=== PATIENT | male | born 1950 | race Two or more races ===

== ENCOUNTER 2019-01-28 09:55 | Inpatient (IN) | payer MEDICARE, OTHER ==
[~2019-01-28] VITALS: Ht 167.6 cm; Wt 138.7 kg
--- NOTE | 2019-01-28 10:09 | NUR ---
Oxygen saturation maintained above 90% with oxygen via nasal cannula at 6LPM
[2019-01-28] MEDS ORDERED: SODIUM CHLORIDE FLUSH 10ML SYR IVF ONE (10:30)
--- NOTE | 2019-01-28 10:49 | NUR ---
[place] for increasing SOB. Pt normally on 5L NC but has felt increasing SOB. Lungs CTA. NSR on monitor. 94% 5L. No CP. Mild swelling to BLEs.
[2019-01-28 10:51] LABS: ALANINE AMINOTRANSFERASE 23 U/L (12-78); ALBUMIN 2.6 g/dL (3.4-5.0); ANION GAP 3 mmol/L (5-15); CALCIUM 8.5 mg/dL (8.5-10.1); CHLORIDE 103 mmol/L (98-107); CREATININE 1.29 mg/dL (0.7-1.3)
[2019-01-28 10:55] LABS: ALKALINE PHOSPHATASE 82 U/L (45-117); BILIRUBIN,TOTAL 0.7 mg/dL (0.2-1.0); TOTAL PROTEIN 8.3 g/dL (6.4-8.2); TROPONIN I 0.025 ng/mL (0.000-0.045)
[2019-01-28 11:08] LABS: BASOPHILS # (AUTO) 0.01 x10^3/uL (0-0.1); BASOPHILS % (AUTO) 0 % (0-1); EOSINOPHILS # (AUTO) 0.09 x10^3/uL (0-0.4); EOSINOPHILS % (AUTO) 1 % (1-7); LYMPHOCYTES # (AUTO) 1.23 x10^3/uL (1-3.4); LYMPHOCYTES % (AUTO) 13 % (22-44); MD SCAN; MEAN CORPUSCULAR HEMOGLOBIN 28.1 pg (27.5-34.5); MEAN CORPUSCULAR HGB CONC 30.8 g/dL (33.2-36.2); MEAN CORPUSCULAR VOLUME 91.3 fL (81-97); MEAN PLATELET VOLUME 7.2 fL (7.4-10.4); MONOCYTES # (AUTO) 0.57 x10^3/uL (0.2-0.8); MONOCYTES % (AUTO) 6 % (2-9); NEUTROPHILS # (AUTO) 7.88 x10^3/uL (1.8-6.8); NEUTROPHILS % (AUTO) 81 % (42-75); PLATELET COUNT 332 x10^3/uL (130-400); RED BLOOD COUNT 5.92 x10^6/uL (4.38-5.82)
[2019-01-28] MEDS ORDERED: CEFTRIAXONE PMX 1GM/50ML 50 ML IVPB ONE (11:30)
[2019-01-28] MEDS ORDERED: FUROSEMIDE 20 MG/2 ML IV ONE (11:30)
[2019-01-28] MEDS ORDERED: FUROSEMIDE 40 MG/4 ML ONE (12:03)
[2019-01-28] MEDS ORDERED: CEFTRIAXONE PMX 1GM/50ML 50 ML ONE ×2 (12:03→19:49)
--- NOTE | 2019-01-28 12:56 | NUR ---
PT WITH PENITENTIARY PLUS DENIED BY PAT AT [facility]
[2019-01-28] MEDS ORDERED: LIDODERM 5% PATCH TD PRN (13:00)
[2019-01-28] MEDS ORDERED: hydrALAzine 20 MG/ML, 1ML IVPush PRN (13:00)
[2019-01-28] MEDS ORDERED: GUAIFENESIN/DM 200-20MG, 10ML UDC PO PRN (13:00)
[2019-01-28] MEDS ORDERED: DOCUSATE 100 MG CAPSULE PO PRN (13:00)
[2019-01-28] MEDS ORDERED: NITROGLYCERIN 0.4 MG/SPRAY SL PRN (13:00)
[2019-01-28] MEDS ORDERED: ONDANSETRON ODT 4 MG PO PRN (13:00)
[2019-01-28] MEDS ORDERED: BISACODYL 10 MG SUPP PR PRN (13:00)
[2019-01-28] MEDS ORDERED: NITROGLYCERIN 0.4 MG BOTTLE (25 TABS) SL PRN ×2 (13:00)
[2019-01-28] MEDS ORDERED: CHOL400T55 PO (13:05)
[2019-01-28] MEDS ORDERED: ALLO300T PO (13:05)
[2019-01-28] MEDS ORDERED: NAPR-856 PO (13:05)
[2019-01-28] MEDS ORDERED: LISI-170 PO (13:05)
[2019-01-28] MEDS ORDERED: HEPARIN 5,000 UNITS/ML, 1ML ONE ×2 (13:45→21:05)
[2019-01-28] MEDS: HEPARIN 5,000 UNITS/ML, 1ML SQ SCH ×2 (13:50→21:11)
[2019-01-28 13:52] LABS: HEMOGLOBIN A1C 6.3 % (4.2-6.3)
[2019-01-28 13:53] LABS: TROPONIN I 0.031 ng/mL (0.000-0.045)
[2019-01-28 13:54] LABS: FREE T4 (FREE THYROXINE) 1.27 ng/dL (0.76-1.46)
[2019-01-28 14:00] LABS: THYROID STIMULATING HORMONE 0.469 mIU/L (0.358-3.740)
--- NOTE | 2019-01-28 15:44 | NUR ---
TASK RN: PT MOVED ONTO HOSPITAL BED FOR COMFORT.
[2019-01-28] MEDS: FUROSEMIDE 20 MG/2 ML IV SCH (16:53)
[2019-01-28] MEDS ORDERED: ALBUTEROL/IPRATROPIUM 2.5MG/0.5MG, 3 ML HHN PRN (19:30)
[2019-01-28] MEDS: CEFTRIAXONE PMX 1GM/50ML 50 ML IV SCH (19:54)
[2019-01-28] MEDS: DOXYCYCLINE 100MG CAP PO SCH (21:00)
[2019-01-28] MEDS ORDERED: DOXYCYCLINE 100MG TABLET ONE (21:05)
[2019-01-28 22:10] VITALS: BP 109/64
[2019-01-28 22:53] VITALS: BP 109/65
[2019-01-29 02:10] VITALS: BP 116/71
[2019-01-29] MEDS: HEPARIN 5,000 UNITS/ML, 1ML SQ SCH ×3 (04:56→20:52)
[2019-01-29 06:21] LABS: CHLORIDE 100 mmol/L (98-107)
[2019-01-29 06:26] LABS: ANION GAP 1 mmol/L (5-15); CALCIUM 8.8 mg/dL (8.5-10.1); CHOL/HDL RATIO 3.3; CHOLESTEROL, TOTAL 128 mg/dL (140-239); CREATININE 1.31 mg/dL (0.7-1.3); HDL CHOL % 30 % (26-37); HDL CHOLESTEROL (DIRECT) 39 mg/dL (40-60); LDL CHOLESTEROL,CALCULATED 78 mg/dL (54-169); TRIGLYCERIDES 57 mg/dL (50-200); VLDL CHOLESTEROL 11 mg/dL (0-25)
[2019-01-29 06:30] LABS: MEAN CORPUSCULAR HEMOGLOBIN 28.8 pg (27.5-34.5); MEAN CORPUSCULAR HGB CONC 31.4 g/dL (33.2-36.2); MEAN CORPUSCULAR VOLUME 91.7 fL (81-97); MEAN PLATELET VOLUME 7.4 fL (7.4-10.4); PLATELET COUNT 297 x10^3/uL (130-400); RED BLOOD COUNT 5.66 x10^6/uL (4.38-5.82); RED CELL DISTRIBUTION WIDTH 14.6 % (9.4-14.8)
[2019-01-29 07:22] VITALS: BP 123/69
[2019-01-29 08:47] LABS: BASOPHILS # (AUTO) 0.03 x10^3/uL (0-0.1); BASOPHILS % (AUTO) 0 % (0-1); EOSINOPHILS # (AUTO) 0.16 x10^3/uL (0-0.4); EOSINOPHILS % (AUTO) 2 % (1-7); LYMPHOCYTES # (AUTO) 1.12 x10^3/uL (1-3.4); LYMPHOCYTES % (AUTO) 13 % (22-44); MD SCAN; MONOCYTES % (AUTO) 8 % (2-9); NEUTROPHILS # (AUTO) 6.54 x10^3/uL (1.8-6.8); NEUTROPHILS % (AUTO) 77 % (42-75)
[2019-01-29] MEDS: FUROSEMIDE 20 MG/2 ML IV SCH (09:12)
[2019-01-29] MEDS: DOXYCYCLINE 100MG CAP PO SCH ×2 (09:12→20:52)
[2019-01-29 13:00] VITALS: BP 114/74
[2019-01-29 18:59] VITALS: BP 122/81
[2019-01-29] MEDS: CEFTRIAXONE PMX 1GM/50ML 50 ML IV SCH (19:30)
[2019-01-30 03:59] VITALS: BP 100/64
[2019-01-30] MEDS: HEPARIN 5,000 UNITS/ML, 1ML SQ SCH ×3 (05:25→20:20)
[2019-01-30 06:10] LABS: CHLORIDE 99 mmol/L (98-107)
[2019-01-30 06:18] LABS: ANION GAP 3 mmol/L (5-15); CALCIUM 8.7 mg/dL (8.5-10.1); CREATININE 1.35 mg/dL (0.7-1.3)
[2019-01-30 07:26] VITALS: BP 149/65
[2019-01-30] MEDS: ALLOPURINOL 300 MG TABLET PO SCH (08:19)
[2019-01-30] MEDS: DOXYCYCLINE 100MG CAP PO SCH ×2 (08:19→20:19)
[2019-01-30] MEDS: CHOLECALCIFEROL 400 UNITS TABLET PO SCH (08:19)
[2019-01-30] MEDS: ACETAMINOPHEN 325 MG TABLET PO PRN (12:41)
[2019-01-30 13:12] VITALS: BP 145/77
[2019-01-30 19:42] VITALS: BP 102/61
[2019-01-30] MEDS: CEFTRIAXONE PMX 1GM/50ML 50 ML IV SCH (20:19)
[2019-01-31] MEDS: ACETAMINOPHEN 325 MG TABLET PO PRN ×3 (00:10→19:39)
[2019-01-31 00:56] VITALS: BP 121/73
[2019-01-31] MEDS: HEPARIN 5,000 UNITS/ML, 1ML SQ SCH ×2 (05:27→21:27)
[2019-01-31 06:08] LABS: CALCIUM 8.8 mg/dL (8.5-10.1); CHLORIDE 100 mmol/L (98-107); CREATININE 1.33 mg/dL (0.7-1.3)
[2019-01-31 06:31] LABS: ANION GAP 4 mmol/L (5-15)
[2019-01-31 07:02] VITALS: BP 124/76
[2019-01-31] MEDS: CHOLECALCIFEROL 400 UNITS TABLET PO SCH (08:01)
[2019-01-31] MEDS: DOXYCYCLINE 100MG CAP PO SCH (08:01)
[2019-01-31] MEDS: ALLOPURINOL 300 MG TABLET PO SCH (08:05)
[2019-01-31 12:15] VITALS: BP 135/80
[2019-01-31] MEDS ORDERED: FENTANYL PF 100 MCG/2ML ONE (13:54)
[2019-01-31] MEDS ORDERED: PROPOFOL 100 ML IV ONE (13:55)
[2019-01-31] MEDS ORDERED: ETOMIDATE 20 MG/10 ML ONE (14:00)
[2019-01-31] MEDS ORDERED: ROCURONIUM 10MG/ML,5ML ONE (14:00)
[2019-01-31] MEDS ORDERED: GLUCAGON 1 MG IM PRN (14:30)
[2019-01-31] MEDS ORDERED: LIDOCAINE-MPF 1%, 2ML ENDO PRN (14:30)
[2019-01-31] MEDS ORDERED: SENNA/DOCUSATE TABLET NG PRN (14:30)
[2019-01-31] MEDS: ALBUTEROL/IPRATROPIUM 2.5MG/0.5MG, 3 ML INLINE SCH ×3 (14:30→22:34)
[2019-01-31] MEDS ORDERED: BISACODYL 10 MG SUPP PR PRN (14:30)
[2019-01-31] MEDS ORDERED: PHARMACY MAY ADJ FOR RENAL FX MC SCH (14:30)
[2019-01-31] MEDS ORDERED: DEXTROSE 4 GM TAB.CHEW PO PRN (14:30)
[2019-01-31] MEDS ORDERED: SODIUM CHLORIDE 0.9%, 500ML IV ONE (14:30)
[2019-01-31] MEDS ORDERED: SENNOSIDES 8.8 MG/5 ML ORAL SOL NG PRN (14:30)
[2019-01-31] MEDS ORDERED: DEXTROSE 50%, 50ML SYRINGE IVPush PRN (14:30)
[2019-01-31] MEDS ORDERED: AMPICILLIN/SULBACTAM 3 GM in SODIUM CHLORIDE 0.9% 100 ML IV SCH (15:00)
[2019-01-31 15:09] LABS: TROPONIN I < 0.015 ng/mL (0.000-0.045)
[2019-01-31] MEDS: SODIUM CHLORIDE 0.9% 1,000 ML IV SCH (15:29)
[2019-01-31] MEDS: AMPICILLIN/SULBACTAM 3 GM in SODIUM CHLORIDE 0.9% 50 ML IV SCH ×2 (15:29→23:57)
[2019-01-31] MEDS: FAMOTIDINE 20 MG/2 ML IV SCH (15:32)
[2019-01-31] MEDS: INSULIN LISPRO 100 UNITS/ML, PEN SQ-INSULIN SCH ×2 (16:00→21:00)
[2019-01-31] MEDS: PROPOFOL 100 ML IV PRN ×3 (16:15→21:22)
[2019-01-31] MEDS: FENTANYL PF 100 MCG/2ML IVPush PRN (19:39)
[2019-01-31 20:44] LABS: TROPONIN I < 0.015 ng/mL (0.000-0.045)
[2019-01-31] MEDS: SODIUM CHLORIDE FLUSH 10ML SYR IVF SCH (21:00)
[2019-02-01] MEDS: ALBUTEROL/IPRATROPIUM 2.5MG/0.5MG, 3 ML INLINE SCH ×6 (03:01→22:46)
[2019-02-01] MEDS: FAMOTIDINE 20 MG/2 ML IV SCH ×2 (03:21→13:45)
[2019-02-01] MEDS: PROPOFOL 100 ML IV PRN ×7 (03:21→21:48)
[2019-02-01] MEDS: SODIUM CHLORIDE 0.9% 1,000 ML IV SCH (03:50)
[2019-02-01 04:43] LABS: MICROSCOPIC AUTO
[2019-02-01 04:45] LABS: CULTURE INDICATED? NO
[2019-02-01 05:07] LABS: ALANINE AMINOTRANSFERASE 14 U/L (12-78); ALBUMIN 2.2 g/dL (3.4-5.0); ANION GAP 4 mmol/L (5-15); CALCIUM 8.4 mg/dL (8.5-10.1); CHLORIDE 101 mmol/L (98-107); CREATININE 1.28 mg/dL (0.7-1.3)
[2019-02-01 05:09] LABS: ALKALINE PHOSPHATASE 71 U/L (45-117); BILIRUBIN,TOTAL 1.2 mg/dL (0.2-1.0); TOTAL PROTEIN 7.8 g/dL (6.4-8.2)
[2019-02-01 05:10] LABS: MEAN CORPUSCULAR HEMOGLOBIN 28.7 pg (27.5-34.5); MEAN CORPUSCULAR VOLUME 89.7 fL (81-97); MEAN PLATELET VOLUME 8.2 fL (7.4-10.4); PLATELET COUNT 260 x10^3/uL (130-400); RED BLOOD COUNT 5.53 x10^6/uL (4.38-5.82); RED CELL DISTRIBUTION WIDTH 14.4 % (9.4-14.8)
[2019-02-01] MEDS: HEPARIN 5,000 UNITS/ML, 1ML SQ SCH ×3 (05:15→21:25)
[2019-02-01 06:35] LABS: MD YES
[2019-02-01 06:37] LABS: <RBC MORPHOLOGY> NORMAL; BAND#(MANUAL) 0.29 x10^3/uL; BANDS%(MANUAL) 2 % (0-7); LYMPH#(MANUAL) 0.88 x10^3/uL (1-3.4); LYMPHS% (MANUAL) 6 % (22-44); MONOS#(MANUAL) 1.46 x10^3/uL (0.3-2.7); MONOS% (MANUAL) 10 % (2-9); SEG#(MANUAL) 11.97 x10^3/uL (1.8-6.8); SEGS% (MANUAL) 82 % (42-75)
[2019-02-01 06:38] LABS: <PLATELET ESTIMATE> ADEQUATE; <PLT MORPHOLOGY> NORMAL PLT MORPH
[2019-02-01] MEDS: INSULIN LISPRO 100 UNITS/ML, PEN SQ-INSULIN SCH ×4 (07:00→21:00)
[2019-02-01] MEDS: AMPICILLIN/SULBACTAM 3 GM in SODIUM CHLORIDE 0.9% 50 ML IV SCH ×2 (07:12→16:09)
[2019-02-01] MEDS: CHOLECALCIFEROL 400 UNITS TABLET PO SCH (09:47)
[2019-02-01] MEDS: SODIUM CHLORIDE FLUSH 10ML SYR IVF SCH ×2 (09:47→21:28)
[2019-02-01] MEDS: ALLOPURINOL 300 MG TABLET PO SCH (09:47)
--- NOTE | 2019-02-01 11:29 | NUR ---
TF Recommendations: Vital High Protein ON Propofol: 65 ml/hr OFF Propofol: 70 ml/hr
[2019-02-01] MEDS: FENTANYL PF 100 MCG/2ML IVPush PRN (17:12)
[2019-02-02] MEDS: AMPICILLIN/SULBACTAM 3 GM in SODIUM CHLORIDE 0.9% 50 ML IV SCH ×2 (00:13→08:00)
[2019-02-02] MEDS: PROPOFOL 100 ML IV PRN ×4 (01:05→18:47)
[2019-02-02] MEDS: ALBUTEROL/IPRATROPIUM 2.5MG/0.5MG, 3 ML INLINE SCH ×6 (02:30→22:35)
[2019-02-02] MEDS: FAMOTIDINE 20 MG/2 ML IV SCH ×2 (04:10→13:31)
[2019-02-02] MEDS: HEPARIN 5,000 UNITS/ML, 1ML SQ SCH ×3 (04:11→21:33)
[2019-02-02] MEDS: FENTANYL PF 100 MCG/2ML IVPush PRN ×2 (04:21→10:53)
[2019-02-02 05:05] LABS: MEAN CORPUSCULAR HEMOGLOBIN 29.1 pg (27.5-34.5); MEAN CORPUSCULAR HGB CONC 32.2 g/dL (33.2-36.2); MEAN CORPUSCULAR VOLUME 90.2 fL (81-97); MEAN PLATELET VOLUME 8.5 fL (7.4-10.4); PLATELET COUNT 248 x10^3/uL (130-400); RED BLOOD COUNT 5.37 x10^6/uL (4.38-5.82); RED CELL DISTRIBUTION WIDTH 14.5 % (9.4-14.8)
[2019-02-02 05:51] LABS: ANION GAP 7 mmol/L (5-15); CALCIUM 8.5 mg/dL (8.5-10.1); CHLORIDE 101 mmol/L (98-107)
[2019-02-02 07:30] LABS: BASOPHILS # (AUTO) 0.08 x10^3/uL (0-0.1); BASOPHILS % (AUTO) 1 % (0-1); EOSINOPHILS % (AUTO) 1 % (1-7); LYMPHOCYTES # (AUTO) 0.76 x10^3/uL (1-3.4); LYMPHOCYTES % (AUTO) 6 % (22-44); MD SCAN; MONOCYTES # (AUTO) 1.79 x10^3/uL (0.2-0.8); MONOCYTES % (AUTO) 13 % (2-9); NEUTROPHILS # (AUTO) 11.04 x10^3/uL (1.8-6.8); NEUTROPHILS % (AUTO) 80 % (42-75)
[2019-02-02] MEDS: INSULIN LISPRO 100 UNITS/ML, PEN SQ-INSULIN SCH ×4 (08:00→21:37)
[2019-02-02] MEDS: SODIUM CHLORIDE FLUSH 10ML SYR IVF SCH ×2 (09:19→21:00)
[2019-02-02] MEDS: CHOLECALCIFEROL 400 UNITS TABLET PO SCH (09:20)
[2019-02-02] MEDS: ALLOPURINOL 300 MG TABLET PO SCH (09:20)
[2019-02-02] MEDS ORDERED: MIDAZOLAM 1 MG/ML, 5ML ONE (11:25)
[2019-02-02] MEDS ORDERED: VECURONIUM 10 MG ONE (11:25)
[2019-02-02] MEDS ORDERED: FUROSEMIDE 40 MG/4 ML IV ONE (14:20)
[2019-02-02] MEDS: CEFTRIAXONE PMX 1GM/50ML 50 ML IV SCH (14:51)
[2019-02-03] MEDS: ALBUTEROL/IPRATROPIUM 2.5MG/0.5MG, 3 ML INLINE SCH ×6 (02:20→22:30)
[2019-02-03 04:27] LABS: MEAN CORPUSCULAR HEMOGLOBIN 28.4 pg (27.5-34.5); MEAN CORPUSCULAR HGB CONC 31.5 g/dL (33.2-36.2); MEAN CORPUSCULAR VOLUME 90.3 fL (81-97); MEAN PLATELET VOLUME 8.1 fL (7.4-10.4); PLATELET COUNT 230 x10^3/uL (130-400); RED BLOOD COUNT 5.17 x10^6/uL (4.38-5.82); RED CELL DISTRIBUTION WIDTH 14.5 % (9.4-14.8)
[2019-02-03] MEDS: HEPARIN 5,000 UNITS/ML, 1ML SQ SCH ×3 (04:31→21:36)
[2019-02-03] MEDS: FAMOTIDINE 20 MG/2 ML IV SCH (04:31)
[2019-02-03 04:39] LABS: ANION GAP 3 mmol/L (5-15); CALCIUM 8.1 mg/dL (8.5-10.1); CHLORIDE 101 mmol/L (98-107); CREATININE 1.26 mg/dL (0.7-1.3); TRIGLYCERIDES 83 mg/dL (50-200)
[2019-02-03 04:43] LABS: MD YES
[2019-02-03 04:45] LABS: <PLATELET ESTIMATE> ADEQUATE; <PLT MORPHOLOGY> NORMAL PLT MORPH; <RBC MORPHOLOGY> NORMAL; BAND#(MANUAL) 0.38 x10^3/uL; BANDS%(MANUAL) 3 % (0-7); LYMPH#(MANUAL) 1.01 x10^3/uL (1-3.4); LYMPHS% (MANUAL) 8 % (22-44); MONOS#(MANUAL) 1.76 x10^3/uL (0.3-2.7); MONOS% (MANUAL) 14 % (2-9); SEG#(MANUAL) 9.45 x10^3/uL (1.8-6.8); SEGS% (MANUAL) 75 % (42-75)
[2019-02-03] MEDS: CEFTRIAXONE PMX 1GM/50ML 50 ML IV SCH (05:00)
[2019-02-03] MEDS: INSULIN LISPRO 100 UNITS/ML, PEN SQ-INSULIN SCH ×3 (07:00→21:37)
[2019-02-03] MEDS: SODIUM CHLORIDE FLUSH 10ML SYR IVF SCH ×2 (08:19→21:36)
[2019-02-03] MEDS: CHOLECALCIFEROL 400 UNITS TABLET PO SCH (08:19)
[2019-02-03] MEDS: ALLOPURINOL 300 MG TABLET PO SCH (08:20)
[2019-02-03] MEDS: PROPOFOL 100 ML IV PRN ×2 (10:01→19:49)
[2019-02-03] MEDS ORDERED: FAMOTIDINE 20 MG/2 ML IV SCH (21:00)
[2019-02-03] MEDS: FENTANYL PF 100 MCG/2ML IVPush PRN (21:38)
[2019-02-04] MEDS: FENTANYL PF 100 MCG/2ML IVPush PRN ×4 (01:39→20:44)
[2019-02-04] MEDS: ALBUTEROL/IPRATROPIUM 2.5MG/0.5MG, 3 ML INLINE SCH ×6 (03:00→22:06)
[2019-02-04 04:18] LABS: MEAN CORPUSCULAR HEMOGLOBIN 28.6 pg (27.5-34.5); MEAN CORPUSCULAR HGB CONC 31.6 g/dL (33.2-36.2); MEAN CORPUSCULAR VOLUME 90.4 fL (81-97); MEAN PLATELET VOLUME 8.1 fL (7.4-10.4); PLATELET COUNT 233 x10^3/uL (130-400); RED BLOOD COUNT 5.18 x10^6/uL (4.38-5.82); RED CELL DISTRIBUTION WIDTH 14.6 % (9.4-14.8)
[2019-02-04 04:29] LABS: ANION GAP 5 mmol/L (5-15); CALCIUM 8.3 mg/dL (8.5-10.1); CHLORIDE 101 mmol/L (98-107); CREATININE 1.14 mg/dL (0.7-1.3)
[2019-02-04 04:52] LABS: BASOPHILS # (AUTO) 0.04 x10^3/uL (0-0.1); BASOPHILS % (AUTO) 0 % (0-1); EOSINOPHILS # (AUTO) 0.11 x10^3/uL (0-0.4); EOSINOPHILS % (AUTO) 1 % (1-7); LYMPHOCYTES # (AUTO) 1.07 x10^3/uL (1-3.4); LYMPHOCYTES % (AUTO) 8 % (22-44); MD SCAN; MONOCYTES # (AUTO) 2.26 x10^3/uL (0.2-0.8); MONOCYTES % (AUTO) 17 % (2-9); NEUTROPHILS # (AUTO) 10.03 x10^3/uL (1.8-6.8); NEUTROPHILS % (AUTO) 74 % (42-75)
[2019-02-04] MEDS: INSULIN LISPRO 100 UNITS/ML, PEN SQ-INSULIN SCH ×4 (04:53→22:25)
[2019-02-04] MEDS: CEFTRIAXONE PMX 1GM/50ML 50 ML IV SCH (04:55)
[2019-02-04] MEDS: PROPOFOL 100 ML IV PRN ×2 (05:49→17:16)
[2019-02-04] MEDS: HEPARIN 5,000 UNITS/ML, 1ML SQ SCH ×3 (05:49→22:20)
[2019-02-04] MEDS: ALLOPURINOL 300 MG TABLET PO SCH (08:49)
[2019-02-04] MEDS: CHOLECALCIFEROL 400 UNITS TABLET PO SCH (08:49)
[2019-02-04] MEDS: SODIUM CHLORIDE FLUSH 10ML SYR IVF SCH ×2 (08:55→20:45)
[2019-02-04] MEDS: FAMOTIDINE 20 MG/2 ML IV SCH (20:45)
[2019-02-04] MEDS: ACETAMINOPHEN 325 MG TABLET PO PRN (23:50)
[2019-02-05] MEDS: ALBUTEROL/IPRATROPIUM 2.5MG/0.5MG, 3 ML INLINE SCH ×6 (02:50→22:29)
[2019-02-05] MEDS: PROPOFOL 100 ML IV PRN (02:59)
[2019-02-05 04:43] LABS: MEAN CORPUSCULAR HEMOGLOBIN 28.8 pg (27.5-34.5); MEAN CORPUSCULAR HGB CONC 31.7 g/dL (33.2-36.2); MEAN CORPUSCULAR VOLUME 90.7 fL (81-97); MEAN PLATELET VOLUME 8.4 fL (7.4-10.4); PLATELET COUNT 267 x10^3/uL (130-400); RED BLOOD COUNT 4.86 x10^6/uL (4.38-5.82); RED CELL DISTRIBUTION WIDTH 14.6 % (9.4-14.8)
[2019-02-05 04:55] LABS: ANION GAP 3 mmol/L (5-15); CALCIUM 8.7 mg/dL (8.5-10.1); CHLORIDE 102 mmol/L (98-107); CREATININE 1.16 mg/dL (0.7-1.3)
[2019-02-05] MEDS: CEFTRIAXONE PMX 1GM/50ML 50 ML IV SCH (05:09)
[2019-02-05] MEDS: INSULIN LISPRO 100 UNITS/ML, PEN SQ-INSULIN SCH ×4 (05:09→21:44)
[2019-02-05] MEDS: HEPARIN 5,000 UNITS/ML, 1ML SQ SCH ×3 (05:36→21:44)
[2019-02-05 05:57] LABS: BASOPHILS # (AUTO) 0.03 x10^3/uL (0-0.1); BASOPHILS % (AUTO) 0 % (0-1); EOSINOPHILS # (AUTO) 0.25 x10^3/uL (0-0.4); EOSINOPHILS % (AUTO) 2 % (1-7); LYMPHOCYTES # (AUTO) 0.74 x10^3/uL (1-3.4); LYMPHOCYTES % (AUTO) 7 % (22-44); MD SCAN; MONOCYTES # (AUTO) 2.06 x10^3/uL (0.2-0.8); MONOCYTES % (AUTO) 19 % (2-9); NEUTROPHILS # (AUTO) 8.03 x10^3/uL (1.8-6.8); NEUTROPHILS % (AUTO) 72 % (42-75)
[2019-02-05] MEDS ORDERED: MIDAZOLAM 1 MG/ML, 5ML ONE (08:46)
[2019-02-05] MEDS: SODIUM CHLORIDE FLUSH 10ML SYR IVF SCH ×2 (08:57→21:43)
[2019-02-05] MEDS: FAMOTIDINE 20 MG/2 ML IV SCH ×2 (08:57→21:00)
[2019-02-05] MEDS: CHOLECALCIFEROL 400 UNITS TABLET PO SCH (08:57)
[2019-02-05] MEDS: ALLOPURINOL 300 MG TABLET PO SCH (08:57)
[2019-02-05] MEDS: FENTANYL PF 100 MCG/2ML IVPush PRN (09:19)
[2019-02-05] MEDS ORDERED: FUROSEMIDE 20 MG/2 ML IV ONE (12:30)
[2019-02-05] MEDS ORDERED: FUROSEMIDE 20 MG/2 ML ONE (12:30)
[2019-02-06] MEDS: ACETAMINOPHEN 325 MG TABLET PO PRN ×2 (00:14→11:35)
[2019-02-06] MEDS: ALBUTEROL/IPRATROPIUM 2.5MG/0.5MG, 3 ML INLINE SCH ×6 (02:30→23:27)
[2019-02-06 04:27] LABS: MEAN CORPUSCULAR HEMOGLOBIN 28.4 pg (27.5-34.5); MEAN CORPUSCULAR HGB CONC 31.1 g/dL (33.2-36.2); MEAN CORPUSCULAR VOLUME 91.5 fL (81-97); MEAN PLATELET VOLUME 8.4 fL (7.4-10.4); PLATELET COUNT 286 x10^3/uL (130-400); RED BLOOD COUNT 4.74 x10^6/uL (4.38-5.82); RED CELL DISTRIBUTION WIDTH 15.2 % (9.4-14.8)
[2019-02-06 04:41] LABS: ANION GAP 3 mmol/L (5-15); CALCIUM 8.6 mg/dL (8.5-10.1); CHLORIDE 104 mmol/L (98-107); TRIGLYCERIDES 91 mg/dL (50-200)
[2019-02-06] MEDS: INSULIN LISPRO 100 UNITS/ML, PEN SQ-INSULIN SCH ×4 (04:49→23:20)
[2019-02-06] MEDS: CEFTRIAXONE PMX 1GM/50ML 50 ML IV SCH (04:49)
[2019-02-06 05:06] LABS: BASOPHILS # (AUTO) 0.02 x10^3/uL (0-0.1); BASOPHILS % (AUTO) 0 % (0-1); EOSINOPHILS # (AUTO) 0.22 x10^3/uL (0-0.4); EOSINOPHILS % (AUTO) 2 % (1-7); LYMPHOCYTES # (AUTO) 0.91 x10^3/uL (1-3.4); LYMPHOCYTES % (AUTO) 9 % (22-44); MD SCAN; MONOCYTES # (AUTO) 1.82 x10^3/uL (0.2-0.8); MONOCYTES % (AUTO) 18 % (2-9); NEUTROPHILS # (AUTO) 7.26 x10^3/uL (1.8-6.8); NEUTROPHILS % (AUTO) 71 % (42-75)
[2019-02-06] MEDS: HEPARIN 5,000 UNITS/ML, 1ML SQ SCH ×3 (05:32→21:39)
[2019-02-06] MEDS: CHOLECALCIFEROL 400 UNITS TABLET PO SCH (08:30)
[2019-02-06] MEDS: FAMOTIDINE 20 MG/2 ML IV SCH ×2 (08:30→21:39)
[2019-02-06] MEDS: ALLOPURINOL 300 MG TABLET PO SCH (08:30)
[2019-02-06] MEDS: SODIUM CHLORIDE FLUSH 10ML SYR IVF SCH ×2 (08:31→21:39)
[2019-02-06] MEDS: LACTULOSE 20 GM/30 ML UDC NG PRN (08:51)
[2019-02-06] MEDS: FENTANYL PF 100 MCG/2ML IVPush PRN ×2 (08:51→21:46)
[2019-02-06] MEDS: methylPREDNISolone SOD SUCC 40 MG/ML IV SCH ×2 (16:30→23:23)
[2019-02-06] MEDS: SODIUM BICARBONATE 4.0%, 5ML NPPB SCH ×2 (19:54→23:27)
[2019-02-07] MEDS: ACETAMINOPHEN 325 MG TABLET PO PRN (01:56)
[2019-02-07] MEDS: FENTANYL PF 100 MCG/2ML IVPush PRN ×2 (03:00→21:18)
[2019-02-07] MEDS: SODIUM BICARBONATE 4.0%, 5ML NPPB SCH ×6 (03:00→22:45)
[2019-02-07] MEDS: ALBUTEROL/IPRATROPIUM 2.5MG/0.5MG, 3 ML INLINE SCH ×6 (03:00→22:45)
[2019-02-07 04:46] LABS: BASOPHILS # (AUTO) 0.01 x10^3/uL (0-0.1); BASOPHILS % (AUTO) 0 % (0-1); EOSINOPHILS # (AUTO) 0.01 x10^3/uL (0-0.4); EOSINOPHILS % (AUTO) 0 % (1-7); LYMPHOCYTES # (AUTO) 0.46 x10^3/uL (1-3.4); LYMPHOCYTES % (AUTO) 6 % (22-44); MD NO; MEAN CORPUSCULAR HEMOGLOBIN 28.2 pg (27.5-34.5); MEAN CORPUSCULAR VOLUME 90.9 fL (81-97); MEAN PLATELET VOLUME 8.7 fL (7.4-10.4); MONOCYTES # (AUTO) 0.21 x10^3/uL (0.2-0.8); MONOCYTES % (AUTO) 3 % (2-9); NEUTROPHILS # (AUTO) 7.28 x10^3/uL (1.8-6.8); NEUTROPHILS % (AUTO) 91 % (42-75); PLATELET COUNT 304 x10^3/uL (130-400); RED BLOOD COUNT 4.69 x10^6/uL (4.38-5.82); RED CELL DISTRIBUTION WIDTH 14.7 % (9.4-14.8)
[2019-02-07] MEDS: CEFTRIAXONE PMX 1GM/50ML 50 ML IV SCH (04:47)
[2019-02-07 04:52] LABS: ANION GAP 4 mmol/L (5-15); CALCIUM 8.8 mg/dL (8.5-10.1); CHLORIDE 104 mmol/L (98-107); CREATININE 1.54 mg/dL (0.7-1.3)
[2019-02-07] MEDS: INSULIN LISPRO 100 UNITS/ML, PEN SQ-INSULIN SCH ×3 (05:05→18:24)
[2019-02-07] MEDS: HEPARIN 5,000 UNITS/ML, 1ML SQ SCH ×3 (05:35→21:18)
[2019-02-07] MEDS: methylPREDNISolone SOD SUCC 40 MG/ML IV SCH ×2 (07:53→18:23)
[2019-02-07] MEDS: SODIUM CHLORIDE FLUSH 10ML SYR IVF SCH ×2 (07:54→21:14)
[2019-02-07] MEDS: FAMOTIDINE 20 MG/2 ML IV SCH ×2 (08:11→21:14)
[2019-02-07] MEDS: CHOLECALCIFEROL 400 UNITS TABLET PO SCH (08:11)
[2019-02-07] MEDS: ALLOPURINOL 300 MG TABLET PO SCH (08:11)
[2019-02-07] MEDS: LACTULOSE 20 GM/30 ML UDC NG PRN (08:42)
[2019-02-08] MEDS: INSULIN LISPRO 100 UNITS/ML, PEN SQ-INSULIN SCH ×5 (00:12→23:53)
[2019-02-08] MEDS: methylPREDNISolone SOD SUCC 40 MG/ML IV SCH ×4 (00:21→23:48)
[2019-02-08] MEDS: ALBUTEROL/IPRATROPIUM 2.5MG/0.5MG, 3 ML INLINE SCH ×3 (03:15→10:57)
[2019-02-08] MEDS: SODIUM BICARBONATE 4.0%, 5ML NPPB SCH ×6 (03:15→22:53)
[2019-02-08 04:48] LABS: BASOPHILS % (AUTO) 0 % (0-1); EOSINOPHILS # (AUTO) 0.01 x10^3/uL (0-0.4); EOSINOPHILS % (AUTO) 0 % (1-7); LYMPHOCYTES % (AUTO) 6 % (22-44); MD NO; MEAN CORPUSCULAR HEMOGLOBIN 28.5 pg (27.5-34.5); MEAN CORPUSCULAR HGB CONC 31.1 g/dL (33.2-36.2); MEAN CORPUSCULAR VOLUME 91.7 fL (81-97); MEAN PLATELET VOLUME 8.6 fL (7.4-10.4); MONOCYTES # (AUTO) 0.84 x10^3/uL (0.2-0.8); MONOCYTES % (AUTO) 8 % (2-9); NEUTROPHILS # (AUTO) 8.99 x10^3/uL (1.8-6.8); NEUTROPHILS % (AUTO) 86 % (42-75); PLATELET COUNT 327 x10^3/uL (130-400); RED CELL DISTRIBUTION WIDTH 15.1 % (9.4-14.8)
[2019-02-08 04:52] LABS: ANION GAP 6 mmol/L (5-15); CALCIUM 8.6 mg/dL (8.5-10.1); CHLORIDE 106 mmol/L (98-107)
[2019-02-08 04:53] LABS: CREATININE 1.35 mg/dL (0.7-1.3)
[2019-02-08] MEDS: CEFTRIAXONE PMX 1GM/50ML 50 ML IV SCH (05:05)
[2019-02-08] MEDS: HEPARIN 5,000 UNITS/ML, 1ML SQ SCH ×3 (06:49→22:09)
[2019-02-08] MEDS: SODIUM CHLORIDE FLUSH 10ML SYR IVF SCH ×2 (07:45→21:00)
[2019-02-08] MEDS: ALLOPURINOL 300 MG TABLET PO SCH (08:17)
[2019-02-08] MEDS: CHOLECALCIFEROL 400 UNITS TABLET PO SCH (08:17)
[2019-02-08] MEDS: POLYETHYLENE GLYCOL 17 GM PACKET PO PRN (08:17)
[2019-02-08] MEDS: FAMOTIDINE 20 MG/2 ML IV SCH ×2 (08:18→22:09)
[2019-02-08] MEDS: FENTANYL PF 100 MCG/2ML IVPush PRN (08:18)
[2019-02-08] MEDS: LACTULOSE 20 GM/30 ML UDC NG PRN (08:18)
[2019-02-08] MEDS: ALBUTEROL/IPRATROPIUM 2.5MG/0.5MG, 3 ML NPPB SCH ×3 (14:30→22:53)
[2019-02-09] MEDS: ALBUTEROL/IPRATROPIUM 2.5MG/0.5MG, 3 ML NPPB SCH ×6 (02:07→22:19)
[2019-02-09] MEDS: SODIUM BICARBONATE 4.0%, 5ML NPPB SCH ×6 (02:07→22:19)
[2019-02-09 04:24] LABS: MEAN CORPUSCULAR HEMOGLOBIN 28.3 pg (27.5-34.5); MEAN CORPUSCULAR HGB CONC 30.5 g/dL (33.2-36.2); MEAN CORPUSCULAR VOLUME 92.7 fL (81-97); MEAN PLATELET VOLUME 8.5 fL (7.4-10.4); PLATELET COUNT 333 x10^3/uL (130-400); RED BLOOD COUNT 4.99 x10^6/uL (4.38-5.82); RED CELL DISTRIBUTION WIDTH 15.1 % (9.4-14.8)
[2019-02-09 04:25] LABS: ANION GAP 1 mmol/L (5-15); CALCIUM 8.8 mg/dL (8.5-10.1); CHLORIDE 109 mmol/L (98-107); CREATININE 1.08 mg/dL (0.7-1.3); TRIGLYCERIDES 112 mg/dL (50-200)
[2019-02-09 05:09] LABS: BASOPHILS # (AUTO) 0.04 x10^3/uL (0-0.1); BASOPHILS % (AUTO) 0 % (0-1); EOSINOPHILS % (AUTO) 0 % (1-7); LYMPHOCYTES # (AUTO) 0.64 x10^3/uL (1-3.4); LYMPHOCYTES % (AUTO) 7 % (22-44); MD SCAN; MONOCYTES % (AUTO) 6 % (2-9); NEUTROPHILS # (AUTO) 8.59 x10^3/uL (1.8-6.8); NEUTROPHILS % (AUTO) 87 % (42-75)
[2019-02-09] MEDS: CEFTRIAXONE PMX 1GM/50ML 50 ML IV SCH (05:39)
[2019-02-09] MEDS: INSULIN LISPRO 100 UNITS/ML, PEN SQ-INSULIN SCH ×4 (05:40→22:13)
[2019-02-09] MEDS: HEPARIN 5,000 UNITS/ML, 1ML SQ SCH ×3 (06:58→22:06)
[2019-02-09] MEDS: FAMOTIDINE 20 MG/2 ML IV SCH ×2 (07:16→22:06)
[2019-02-09] MEDS: CHOLECALCIFEROL 400 UNITS TABLET PO SCH (07:17)
[2019-02-09] MEDS: ALLOPURINOL 300 MG TABLET PO SCH (07:17)
[2019-02-09] MEDS: SODIUM CHLORIDE FLUSH 10ML SYR IVF SCH ×2 (07:17→22:13)
[2019-02-09] MEDS: POLYETHYLENE GLYCOL 17 GM PACKET PO PRN (07:24)
[2019-02-09] MEDS: ACETAMINOPHEN 325 MG TABLET PO PRN (07:24)
[2019-02-09] MEDS: methylPREDNISolone SOD SUCC 40 MG/ML IV SCH ×3 (07:24→22:06)
[2019-02-09] MEDS ORDERED: FUROSEMIDE 20 MG/2 ML IV ONE (10:00)
[2019-02-10] MEDS: ALBUTEROL/IPRATROPIUM 2.5MG/0.5MG, 3 ML NPPB SCH ×6 (01:48→22:30)
[2019-02-10] MEDS: SODIUM BICARBONATE 4.0%, 5ML NPPB SCH ×6 (01:48→23:00)
[2019-02-10 05:02] LABS: ANION GAP 1 mmol/L (5-15); CALCIUM 8.8 mg/dL (8.5-10.1); CHLORIDE 109 mmol/L (98-107); CREATININE 0.97 mg/dL (0.7-1.3)
[2019-02-10 05:03] LABS: MEAN CORPUSCULAR HEMOGLOBIN 28.4 pg (27.5-34.5); MEAN CORPUSCULAR HGB CONC 30.8 g/dL (33.2-36.2); MEAN CORPUSCULAR VOLUME 92.3 fL (81-97); MEAN PLATELET VOLUME 8.6 fL (7.4-10.4); PLATELET COUNT 346 x10^3/uL (130-400); RED BLOOD COUNT 5.16 x10^6/uL (4.38-5.82); RED CELL DISTRIBUTION WIDTH 14.4 % (9.4-14.8)
[2019-02-10] MEDS: CEFTRIAXONE PMX 1GM/50ML 50 ML IV SCH (05:37)
[2019-02-10 06:19] LABS: BASOPHILS % (AUTO) 2 % (0-1); EOSINOPHILS # (AUTO) 0.04 x10^3/uL (0-0.4); EOSINOPHILS % (AUTO) 0 % (1-7); LYMPHOCYTES # (AUTO) 0.65 x10^3/uL (1-3.4); LYMPHOCYTES % (AUTO) 7 % (22-44); MD SCAN; MONOCYTES # (AUTO) 0.66 x10^3/uL (0.2-0.8); MONOCYTES % (AUTO) 7 % (2-9); NEUTROPHILS # (AUTO) 8.49 x10^3/uL (1.8-6.8); NEUTROPHILS % (AUTO) 85 % (42-75)
[2019-02-10] MEDS: HEPARIN 5,000 UNITS/ML, 1ML SQ SCH ×3 (06:25→20:16)
[2019-02-10] MEDS: INSULIN LISPRO 100 UNITS/ML, PEN SQ-INSULIN SCH ×4 (06:32→20:17)
[2019-02-10] MEDS: methylPREDNISolone SOD SUCC 40 MG/ML IV SCH (07:49)
[2019-02-10] MEDS: FAMOTIDINE 20 MG/2 ML IV SCH (09:00)
[2019-02-10] MEDS: CHOLECALCIFEROL 400 UNITS TABLET PO SCH (10:39)
[2019-02-10] MEDS: ALLOPURINOL 300 MG TABLET PO SCH (10:39)
[2019-02-10] MEDS: SODIUM CHLORIDE FLUSH 10ML SYR IVF SCH ×2 (10:40→20:17)
[2019-02-10] MEDS: FAMOTIDINE 20 MG TABLET PO SCH (20:17)
[2019-02-11] MEDS: ALBUTEROL/IPRATROPIUM 2.5MG/0.5MG, 3 ML NPPB SCH ×6 (02:16→23:45)
[2019-02-11 05:04] LABS: MEAN CORPUSCULAR HEMOGLOBIN 28.2 pg (27.5-34.5); MEAN CORPUSCULAR HGB CONC 31.1 g/dL (33.2-36.2); MEAN CORPUSCULAR VOLUME 90.5 fL (81-97); MEAN PLATELET VOLUME 7.9 fL (7.4-10.4); PLATELET COUNT 443 x10^3/uL (130-400); RED BLOOD COUNT 5.09 x10^6/uL (4.38-5.82); RED CELL DISTRIBUTION WIDTH 14.9 % (9.4-14.8)
[2019-02-11 05:22] LABS: CALCIUM 8.6 mg/dL (8.5-10.1); CHLORIDE 107 mmol/L (98-107); CREATININE 1.09 mg/dL (0.7-1.3)
[2019-02-11 05:45] LABS: ANION GAP 3 mmol/L (5-15)
[2019-02-11 05:46] LABS: BASOPHILS # (AUTO) 0.02 x10^3/uL (0-0.1); BASOPHILS % (AUTO) 0 % (0-1); EOSINOPHILS # (AUTO) 0.27 x10^3/uL (0-0.4); EOSINOPHILS % (AUTO) 2 % (1-7); LYMPHOCYTES # (AUTO) 1.43 x10^3/uL (1-3.4); LYMPHOCYTES % (AUTO) 13 % (22-44); MONOCYTES # (AUTO) 1.03 x10^3/uL (0.2-0.8); MONOCYTES % (AUTO) 9 % (2-9); NEUTROPHILS # (AUTO) 8.42 x10^3/uL (1.8-6.8); NEUTROPHILS % (AUTO) 75 % (42-75)
[2019-02-11 05:51] LABS: MD SCAN
[2019-02-11] MEDS: HEPARIN 5,000 UNITS/ML, 1ML SQ SCH ×3 (06:43→21:02)
[2019-02-11] MEDS: INSULIN LISPRO 100 UNITS/ML, PEN SQ-INSULIN SCH ×4 (07:00→21:00)
[2019-02-11] MEDS: SODIUM BICARBONATE 4.0%, 5ML NPPB SCH ×5 (07:32→23:45)
[2019-02-11] MEDS: CHOLECALCIFEROL 400 UNITS TABLET PO SCH (08:21)
[2019-02-11] MEDS: ALLOPURINOL 300 MG TABLET PO SCH (08:21)
[2019-02-11] MEDS: FAMOTIDINE 20 MG TABLET PO SCH ×2 (08:22→21:02)
[2019-02-11] MEDS: SODIUM CHLORIDE FLUSH 10ML SYR IVF SCH ×2 (08:24→21:02)
[2019-02-12] MEDS: ALBUTEROL/IPRATROPIUM 2.5MG/0.5MG, 3 ML NPPB SCH ×6 (03:00→22:56)
[2019-02-12] MEDS: SODIUM BICARBONATE 4.0%, 5ML NPPB SCH ×2 (03:08→10:00)
[2019-02-12 04:38] LABS: MEAN CORPUSCULAR HEMOGLOBIN 28.6 pg (27.5-34.5); MEAN CORPUSCULAR HGB CONC 31.4 g/dL (33.2-36.2); MEAN CORPUSCULAR VOLUME 91.1 fL (81-97); MEAN PLATELET VOLUME 7.9 fL (7.4-10.4); PLATELET COUNT 429 x10^3/uL (130-400); RED BLOOD COUNT 5.08 x10^6/uL (4.38-5.82); RED CELL DISTRIBUTION WIDTH 14.7 % (9.4-14.8)
[2019-02-12 04:49] LABS: ANION GAP 2 mmol/L (5-15); CALCIUM 8.3 mg/dL (8.5-10.1); CHLORIDE 108 mmol/L (98-107)
[2019-02-12 04:51] LABS: CREATININE 1.05 mg/dL (0.7-1.3)
[2019-02-12 05:09] LABS: BASOPHILS # (AUTO) 0.08 x10^3/uL (0-0.1); BASOPHILS % (AUTO) 1 % (0-1); EOSINOPHILS # (AUTO) 0.46 x10^3/uL (0-0.4); EOSINOPHILS % (AUTO) 4 % (1-7); LYMPHOCYTES % (AUTO) 14 % (22-44); MD SCAN; MONOCYTES # (AUTO) 0.71 x10^3/uL (0.2-0.8); MONOCYTES % (AUTO) 7 % (2-9); NEUTROPHILS # (AUTO) 8.12 x10^3/uL (1.8-6.8); NEUTROPHILS % (AUTO) 75 % (42-75)
[2019-02-12] MEDS: HEPARIN 5,000 UNITS/ML, 1ML SQ SCH ×3 (05:51→21:14)
[2019-02-12] MEDS: INSULIN LISPRO 100 UNITS/ML, PEN SQ-INSULIN SCH ×4 (07:00→21:00)
[2019-02-12] MEDS: FAMOTIDINE 20 MG TABLET PO SCH ×2 (11:37→21:14)
[2019-02-12] MEDS: SODIUM CHLORIDE FLUSH 10ML SYR IVF SCH ×2 (11:37→21:14)
[2019-02-12] MEDS: CHOLECALCIFEROL 400 UNITS TABLET PO SCH (11:37)
[2019-02-12] MEDS: ALLOPURINOL 300 MG TABLET PO SCH (11:37)
[2019-02-13] MEDS: ALBUTEROL/IPRATROPIUM 2.5MG/0.5MG, 3 ML NPPB SCH ×6 (02:40→22:42)
[2019-02-13 05:31] LABS: ANION GAP 3 mmol/L (5-15); CALCIUM 8.2 mg/dL (8.5-10.1); CHLORIDE 107 mmol/L (98-107); CREATININE 1.01 mg/dL (0.7-1.3)
[2019-02-13 05:34] LABS: MEAN CORPUSCULAR HEMOGLOBIN 28.5 pg (27.5-34.5); MEAN CORPUSCULAR HGB CONC 31.7 g/dL (33.2-36.2); MEAN PLATELET VOLUME 7.9 fL (7.4-10.4); PLATELET COUNT 419 x10^3/uL (130-400); RED BLOOD COUNT 5.15 x10^6/uL (4.38-5.82); RED CELL DISTRIBUTION WIDTH 14.8 % (9.4-14.8)
[2019-02-13 05:55] LABS: BASOPHILS # (AUTO) 0.05 x10^3/uL (0-0.1); BASOPHILS % (AUTO) 0 % (0-1); EOSINOPHILS # (AUTO) 0.51 x10^3/uL (0-0.4); EOSINOPHILS % (AUTO) 4 % (1-7); LYMPHOCYTES # (AUTO) 1.34 x10^3/uL (1-3.4); LYMPHOCYTES % (AUTO) 10 % (22-44); MD SCAN; MONOCYTES # (AUTO) 0.62 x10^3/uL (0.2-0.8); MONOCYTES % (AUTO) 4 % (2-9); NEUTROPHILS # (AUTO) 11.62 x10^3/uL (1.8-6.8); NEUTROPHILS % (AUTO) 82 % (42-75)
[2019-02-13] MEDS: HEPARIN 5,000 UNITS/ML, 1ML SQ SCH ×3 (06:17→20:47)
[2019-02-13] MEDS: INSULIN LISPRO 100 UNITS/ML, PEN SQ-INSULIN SCH ×4 (07:00→23:00)
[2019-02-13] MEDS: FAMOTIDINE 20 MG TABLET PO SCH ×2 (08:29→20:47)
[2019-02-13] MEDS: SODIUM CHLORIDE FLUSH 10ML SYR IVF SCH ×2 (08:29→20:46)
[2019-02-13] MEDS: CHOLECALCIFEROL 400 UNITS TABLET PO SCH (08:29)
[2019-02-13] MEDS: ALLOPURINOL 300 MG TABLET PO SCH (08:29)
[2019-02-14] MEDS: ALBUTEROL/IPRATROPIUM 2.5MG/0.5MG, 3 ML NPPB SCH ×6 (02:49→22:22)
[2019-02-14 05:02] LABS: MEAN CORPUSCULAR HEMOGLOBIN 28.5 pg (27.5-34.5); MEAN CORPUSCULAR VOLUME 89.1 fL (81-97); MEAN PLATELET VOLUME 7.9 fL (7.4-10.4); PLATELET COUNT 422 x10^3/uL (130-400); RED BLOOD COUNT 5.02 x10^6/uL (4.38-5.82); RED CELL DISTRIBUTION WIDTH 14.9 % (9.4-14.8)
[2019-02-14 05:09] LABS: CALCIUM 8.2 mg/dL (8.5-10.1)
[2019-02-14 05:37] LABS: ANION GAP 3 mmol/L (5-15); CHLORIDE 107 mmol/L (98-107)
[2019-02-14] MEDS: INSULIN LISPRO 100 UNITS/ML, PEN SQ-INSULIN SCH ×4 (05:39→21:00)
[2019-02-14 05:48] LABS: BASOPHILS # (AUTO) 0.02 x10^3/uL (0-0.1); BASOPHILS % (AUTO) 0 % (0-1); EOSINOPHILS # (AUTO) 0.53 x10^3/uL (0-0.4); EOSINOPHILS % (AUTO) 3 % (1-7); LYMPHOCYTES # (AUTO) 1.53 x10^3/uL (1-3.4); LYMPHOCYTES % (AUTO) 10 % (22-44); MD SCAN; MONOCYTES # (AUTO) 0.68 x10^3/uL (0.2-0.8); MONOCYTES % (AUTO) 4 % (2-9); NEUTROPHILS # (AUTO) 13.06 x10^3/uL (1.8-6.8); NEUTROPHILS % (AUTO) 83 % (42-75)
[2019-02-14] MEDS: HEPARIN 5,000 UNITS/ML, 1ML SQ SCH ×3 (06:09→21:03)
[2019-02-14] MEDS: FAMOTIDINE 20 MG TABLET PO SCH ×2 (09:19→21:03)
[2019-02-14] MEDS: ALLOPURINOL 300 MG TABLET PO SCH (09:19)
[2019-02-14] MEDS: CHOLECALCIFEROL 400 UNITS TABLET PO SCH (09:19)
[2019-02-14] MEDS: SODIUM CHLORIDE FLUSH 10ML SYR IVF SCH ×2 (09:20→21:03)
[2019-02-14] MEDS: CEFDINIR 300 MG CAPSULE PO SCH ×2 (09:30→21:03)
[2019-02-15] MEDS: ALBUTEROL/IPRATROPIUM 2.5MG/0.5MG, 3 ML NPPB SCH ×2 (02:30→06:30)
[2019-02-15] MEDS: OXYcodone IR 5MG TABLET PO PRN ×2 (04:39→10:42)
[2019-02-15 04:43] VITALS: BP 160/91
[2019-02-15 05:15] LABS: BASOPHILS # (AUTO) 0.02 x10^3/uL (0-0.1); BASOPHILS % (AUTO) 0 % (0-1); EOSINOPHILS # (AUTO) 0.47 x10^3/uL (0-0.4); EOSINOPHILS % (AUTO) 4 % (1-7); LYMPHOCYTES # (AUTO) 1.19 x10^3/uL (1-3.4); LYMPHOCYTES % (AUTO) 9 % (22-44); MD NO; MEAN CORPUSCULAR HEMOGLOBIN 28.4 pg (27.5-34.5); MEAN CORPUSCULAR HGB CONC 31.6 g/dL (33.2-36.2); MEAN CORPUSCULAR VOLUME 89.8 fL (81-97); MEAN PLATELET VOLUME 7.9 fL (7.4-10.4); MONOCYTES # (AUTO) 0.88 x10^3/uL (0.2-0.8); MONOCYTES % (AUTO) 7 % (2-9); NEUTROPHILS % (AUTO) 80 % (42-75); PLATELET COUNT 424 x10^3/uL (130-400); RED BLOOD COUNT 5.32 x10^6/uL (4.38-5.82); RED CELL DISTRIBUTION WIDTH 15.1 % (9.4-14.8)
[2019-02-15 05:29] LABS: ANION GAP 5 mmol/L (5-15); CALCIUM 8.5 mg/dL (8.5-10.1); CHLORIDE 106 mmol/L (98-107)
[2019-02-15 05:31] LABS: CREATININE 0.93 mg/dL (0.7-1.3)
[2019-02-15] MEDS: HEPARIN 5,000 UNITS/ML, 1ML SQ SCH (06:20)
[2019-02-15] MEDS: INSULIN LISPRO 100 UNITS/ML, PEN SQ-INSULIN SCH ×2 (06:26→11:00)
[2019-02-15] MEDS: SODIUM CHLORIDE FLUSH 10ML SYR IVF SCH (07:49)
[2019-02-15] MEDS: FAMOTIDINE 20 MG TABLET PO SCH (07:49)
[2019-02-15] MEDS: CEFDINIR 300 MG CAPSULE PO SCH (07:49)
[2019-02-15] MEDS: ALLOPURINOL 300 MG TABLET PO SCH (07:49)
[2019-02-15] MEDS: CHOLECALCIFEROL 400 UNITS TABLET PO SCH (07:51)
[2019-02-15] MEDS ORDERED: LIDODERM 5% PATCH TD SCH (11:30)
[2019-02-15] MEDS ORDERED: OXYcodone IR 5MG TABLET PO PRN (11:30)
[2019-02-15] MEDS ORDERED: LACT20SO13 NG (13:22)
[2019-02-15] MEDS ORDERED: INSU100I11 SQ-INSULIN (13:22)
[2019-02-15] MEDS ORDERED: DOCU-131 PO (13:22)
[2019-02-15] MEDS ORDERED: SENN8.8S5 NG (13:22)
[2019-02-15] MEDS ORDERED: SENN-177 NG (13:22)
[2019-02-15] MEDS ORDERED: CEFD300C37 PO (13:22)
[2019-02-15] MEDS ORDERED: IPRA3AMP30 NPPB (13:22)
[2019-02-15] MEDS ORDERED: 0.92DISP2 IVF (13:22)
[2019-02-15] MEDS ORDERED: ONDA4TAB13 PO (13:22)
[2019-02-15] MEDS ORDERED: OXYC5TAB3 PO (13:22)
[2019-02-15] MEDS ORDERED: HEPA50002 SQ (13:22)
[2019-02-15] MEDS ORDERED: FAMO20TA7 PO (13:22)
[2019-02-15] MEDS ORDERED: ACET325T14 PO (13:22)
[2019-02-15] MEDS ORDERED: BISA10SU54 PR (13:22)
[2019-02-15] MEDS ORDERED: LIDO700A20 TD (13:22)
[2019-02-15] MEDS ORDERED: DEXT50DI3 IVPush (13:22)
[2019-02-15] MEDS ORDERED: PRED10TA PO (13:22)
[2019-02-15] MEDS ORDERED: POLY17PO5 PO (13:22)
[2019-02-15] MEDS ORDERED: HYDR20VI3 IVPush (13:22)
[2019-02-15] MEDS ORDERED: ALBUTEROL/IPRATROPIUM 2.5MG/0.5MG, 3 ML NPPB SCH (15:00)
== END 2019-02-15 16:39 | DRG 207 ==
LOC: ED 12:08 → EDIP 12:38 → 5SO 21:58 → CCU 01-31 13:54 → ICU 02-14 07:44
PROVIDERS: ADMIT Hospitalist; ATTEND Hospitalist
PROC: 5A1955Z Respiratory Ventilation, Greater than 96 Consecutive Hours (ICD-10-PCS; principal; 2019-01-31)
PROC: 0BH17EZ Insertion of Endotracheal Airway into Trachea, Via Natural or Artificial Opening (ICD-10-PCS; 2019-01-31)
PROC: 0B998ZZ Drainage of Lingula Bronchus, Via Natural or Artificial Opening Endoscopic (ICD-10-PCS; 2019-01-31)
PROC: 0B948ZZ Drainage of Right Upper Lobe Bronchus, Via Natural or Artificial Opening Endoscopic (ICD-10-PCS; 2019-01-31)
PROC: 0B988ZZ Drainage of Left Upper Lobe Bronchus, Via Natural or Artificial Opening Endoscopic (ICD-10-PCS; 2019-01-31)
PROC: 0B958ZZ Drainage of Right Middle Lobe Bronchus, Via Natural or Artificial Opening Endoscopic (ICD-10-PCS; 2019-01-31)
PROC: 0B978ZZ Drainage of Left Main Bronchus, Via Natural or Artificial Opening Endoscopic (ICD-10-PCS; 2019-01-31)
PROC: 0B968ZZ Drainage of Right Lower Lobe Bronchus, Via Natural or Artificial Opening Endoscopic (ICD-10-PCS; 2019-01-31)
PROC: 0B9B8ZZ Drainage of Left Lower Lobe Bronchus, Via Natural or Artificial Opening Endoscopic (ICD-10-PCS; 2019-01-31)
PROC: 0T9B70Z Drainage of Bladder with Drainage Device, Via Natural or Artificial Opening (ICD-10-PCS; 2019-02-01)
PROC: 0B9B8ZZ Drainage of Left Lower Lobe Bronchus, Via Natural or Artificial Opening Endoscopic (ICD-10-PCS; 2019-02-02)
PROC: 0B948ZZ Drainage of Right Upper Lobe Bronchus, Via Natural or Artificial Opening Endoscopic (ICD-10-PCS; 2019-02-02)
PROC: 0B988ZZ Drainage of Left Upper Lobe Bronchus, Via Natural or Artificial Opening Endoscopic (ICD-10-PCS; 2019-02-02)
PROC: 0B958ZZ Drainage of Right Middle Lobe Bronchus, Via Natural or Artificial Opening Endoscopic (ICD-10-PCS; 2019-02-02)
PROC: 0B978ZZ Drainage of Left Main Bronchus, Via Natural or Artificial Opening Endoscopic (ICD-10-PCS; 2019-02-02)
PROC: 0B968ZZ Drainage of Right Lower Lobe Bronchus, Via Natural or Artificial Opening Endoscopic (ICD-10-PCS; 2019-02-02)
PROC: 0B928ZZ Drainage of Carina, Via Natural or Artificial Opening Endoscopic (ICD-10-PCS; 2019-02-05)
PROC: 0B948ZZ Drainage of Right Upper Lobe Bronchus, Via Natural or Artificial Opening Endoscopic (ICD-10-PCS; 2019-02-05)
PROC: 0B978ZZ Drainage of Left Main Bronchus, Via Natural or Artificial Opening Endoscopic (ICD-10-PCS; 2019-02-05)
PROC: 0B968ZZ Drainage of Right Lower Lobe Bronchus, Via Natural or Artificial Opening Endoscopic (ICD-10-PCS; 2019-02-05)
PROC: 0B9B8ZZ Drainage of Left Lower Lobe Bronchus, Via Natural or Artificial Opening Endoscopic (ICD-10-PCS; 2019-02-05)
PROC: 0B998ZZ Drainage of Lingula Bronchus, Via Natural or Artificial Opening Endoscopic (ICD-10-PCS; 2019-02-05)
PROC: 5A09457 Assistance with Respiratory Ventilation, 24-96 Consecutive Hours, Continuous Positive Airway Pressure (ICD-10-PCS; 2019-02-08)
DX: J15.6 Pneumonia due to other Gram-negative bacteria (principal); J96.21 Acute and chronic respiratory failure with hypoxia; E43 Unspecified severe protein-calorie malnutrition; I50.33 Acute on chronic diastolic (congestive) heart failure; Z68.42 Body mass index [BMI] 45.0-49.9, adult; I45.2 Bifascicular block; J98.11 Atelectasis; L97.909 Non-pressure chronic ulcer of unspecified part of unspecified lower leg with unspecified severity; Z99.11 Dependence on respirator [ventilator] status; T17.890A Other foreign object in other parts of respiratory tract causing asphyxiation, initial encounter; E66.01 Morbid (severe) obesity due to excess calories; I11.0 Hypertensive heart disease with heart failure; I35.0 Nonrheumatic aortic (valve) stenosis; G47.33 Obstructive sleep apnea (adult) (pediatric); I44.60 Unspecified fascicular block; I87.8 Other specified disorders of veins; E78.5 Hyperlipidemia, unspecified; M1A.9XX0 Chronic gout, unspecified, without tophus (tophi); I25.10 Atherosclerotic heart disease of native coronary artery without angina pectoris; I27.29 Other secondary pulmonary hypertension; K21.9 Gastro-esophageal reflux disease without esophagitis; M19.90 Unspecified osteoarthritis, unspecified site; Z87.891 Personal history of nicotine dependence
CPT/HCPCS: 31622; 31624; 36415; 36600; 71045; 71046; 71250; 80048; 80053; 80061; 81001; 82803; 82962; 83036; 83605; 83735; 83880; 84439; 84443; 84478; 84484; 85025; 87015; 87040; 87070; 87077; 87081; 87102; 87116; 87186; 87205; 87206; 93005; 93306; 93970; 94002; 94003; 94150; 94640; 94660; 94667; 94668; 96374; 96375; 99285; G0378; J0295; J0696; J1644; J1940; J2250; J2704; J3010; J7620; J1815; J2920; J3490; J7030; J7040; J7512